=== PATIENT | male | born 1950 | race Caucasian/White ===

== ENCOUNTER 2017-06-12 05:52 | Day surgery (SDC) | payer MEDICARE, OTHER ==
[~2017-06-12] VITALS: Ht 171.4 cm; Wt 74.5 kg
[2017-06-12] VITALS (9 sets, daily range): BP systolic 134–154; BP diastolic 63–76; PULSE 80–88; RESP 16–20; Ht 171.4 cm; Wt 74.5 kg
[2017-06-12] MEDS ORDERED: BP MED (06:39)
--- NOTE | 2017-06-12 06:54 | RADRPT ---
PROCEDURE: XR Chest. CLINICAL INDICATION: AV graft creation. Pulmonary process not otherwise specified. TECHNIQUE: Portable single view of the chest COMPARISON: None. FINDINGS: The heart size appears within normal limits. There are increased interstitial markings of the lung b ases, left greater than right. Aortic calcification. There is a presumed femoral approach double-lum en catheter with tips in the right atrium and superior vena cava. Slightly increased markings at the medial left lung base could be due to an area of early infiltrate. No other area of infiltrate is s een. No pleural effusion or overt congestive heart failure. Mild degenerative change of the spine. IMPRESSION: Presumed femoral approach double-lumen catheter with tips in the right atrium and superior vena cava . Increased basilar interstitial markings. Early left base infiltrate cannot be excluded. RPTAT: [facility] Physician [place] Date Time Electronically viewed and signed by Jessy Puri Physician on 06/12/2017 06:54 KARSTEN/
[2017-06-12] MEDS ORDERED: LIDOCAINE 1% (MPF) 30 ML INJ ONE (07:24)
[2017-06-12] MEDS ORDERED: THROMBIN 5000 UNIT VIAL ONE (07:24)
[2017-06-12] MEDS ORDERED: GELATIN SIZE 100 SPONGE ONE (07:24)
[2017-06-12] MEDS ORDERED: HEPARIN 1000 UNITS/ML 10 ML INJ ONE (07:24)
[2017-06-12] MEDS ORDERED: CARVEDILOL (07:29)
[2017-06-12] MEDS ORDERED: GABAPENTIN (07:29)
[2017-06-12] MEDS ORDERED: TRAZADONE (07:29)
[2017-06-12] MEDS ORDERED: DEPRESSION MED (07:29)
[2017-06-12] MEDS ORDERED: OMEGA (07:29)
--- NOTE | 2017-06-12 07:29 | HPN ---
Date/Time of Note Date/Time of Note DATE: 06/12/17 TIME: 07:29 Interval H&P Admission Note Pt. seen H&P reviewed: No system changes ARLETTE NAPOLES MD Jun 12, 2017 07:29
--- NOTE | 2017-06-12 07:29 | HPN ---
Date/Time of Note Date/Time of Note DATE: 06/12/17 TIME: 07:29 Interval H&P Admission Note Pt. seen H&P reviewed: No system changes ARLETET NAPOLES MD Jun 12, 2017 07:29
[2017-06-12] MEDS ORDERED: LIDOCAINE 1% (MPF) 30 ML INJ INJ ONE (07:55)
[2017-06-12] MEDS ORDERED: HEPARIN 1000 UNITS/ML 10 ML INJ IRR ONE (07:55)
[2017-06-12] MEDS ORDERED: FENTAnyl 50 MCG/ML VIAL ONE (08:07)
[2017-06-12] MEDS ORDERED: MIDAZOLAM 1 MG/ML 2 ML INJ ONE (08:08)
[2017-06-12] MEDS ORDERED: CEFAZOLIN 1 GM INJ ONE (09:24)
[2017-06-12] MEDS ORDERED: ONDANSETRON 4 MG INJ ONE (09:24)
[2017-06-12] MEDS ORDERED: ETOMIDATE 20 MG INJ ONE (09:24)
[2017-06-12] MEDS ORDERED: LIDOCAINE 2% (SDV) 5 ML INJ ONE (09:24)
[2017-06-12] MEDS ORDERED: ROPIVACAINE 0.5 % 30 ML VIAL ONE (09:25)
--- NOTE | 2017-06-12 09:51 | SIPON ---
Date/Time of Note Date/Time of Note DATE: 06/12/17 TIME: 09:50 Operative Report Preoperative Diagnosis ESRD Postoperative Diagnosis same Operation/Procedure Performed L arm AVG creation - redo Surgeon see signature line special education educational assistant none Anesthesia: general Estimated blood loss: 10 - 50 ml's Transfusion Required none Specimen none Grafts/Implants 6 mm artegraft Complications none ARLETTE NAPOLES MD Jun 12, 2017 09:51
--- NOTE | 2017-06-12 09:51 | SIPON ---
Date/Time of Note Date/Time of Note DATE: 06/12/17 TIME: 09:50 Operative Report Preoperative Diagnosis ESRD Postoperative Diagnosis same Operation/Procedure Performed L arm AVG creation - redo Surgeon see signature line gift shop assistant none Anesthesia: general Estimated blood loss: 10 - 50 ml's Transfusion Required none Specimen none Grafts/Implants 6 mm artegraft Complications none ARLETTE NAPOLES MD Jun 12, 2017 09:51
--- NOTE | 2017-06-12 09:51 | SIPON ---
Date/Time of Note Date/Time of Note DATE: 06/12/17 TIME: 09:50 Operative Report Preoperative Diagnosis ESRD Postoperative Diagnosis same Operation/Procedure Performed L arm AVG creation - redo Surgeon see signature line tax assistant none Anesthesia: general Estimated blood loss: 10 - 50 ml's Transfusion Required none Specimen none Grafts/Implants 6 mm artegraft Complications none ARLETTE NAPOLES MD Jun 12, 2017 09:51
--- NOTE | 2017-06-12 11:08 | OPR ---
DATE OF OPERATION: 06/12/2017 PREOPERATIVE DIAGNOSIS: End-stage renal disease with multiple failed previous accesses. POSTOPERATIVE DIAGNOSIS: End-stage renal disease with multiple failed previous accesses. PROCEDURE PERFORMED: Creation of left upper arm AV graft. SURGEON: Arlette Harris MD ANESTHESIA: LMA with a Scalene block. ESTIMATED BLOOD LOSS: 50 mL. COMPLICATIONS: There were no intraprocedural complications. INDICATIONS: This is a 66-year-old gentleman. He has been on dialysis for many years. He has had failed accesses in both arms. I did a recent vein mapping. His left-sided central veins are patent and he has a decent axillary vein in the upper arm. 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 I brought him in today for a left arm AV graft. He is currently dialyzing via right femoral Perm-A-Cath. DESCRIPTION OF PROCEDURE: Patient was brought to the operating room and placed on the table in the supine position. The left arm was prepped and draped in the usual sterile fashion. I began by huma abdul ultrasound to identify the brachial artery just above the elbow. I marked it and then I identifie d the axillary vein in the upper arm and I marked that. Once he was prepped and draped in the usual sterile fashion. I began by exposing the brachial artery at the elbow. I made an incision longitu dinally over the brachial artery pulse. I dissected down through subcutaneous tissues using electro cautery. This is a redo so there is a lot of scar tissue, but I was able to dissect out the brachia l artery, it was a little bit small, but had good pulse and was decent caliber. I then went to the upper arm and made a longitudinal incision over the axillary vein and the upper portion of the media l upper arm. I dissected down through the subcutaneous tissue using electrocautery. I carefully id entified the axillary vein. It was a good caliber and very good size, soft and patent. I then tunn eled between the 2 incisions using an aortic clamp. I tunneled a 6 mm Artegraft collagen graft. I then did the venous anastomosis. I clamped the axillary vein proximally and distally, made about a 1.5 cm long venotomy and then spatulated the end of the graft to fit the venotomy and anastomosed th e distal end of the graft to the side of the vein using 6-0 Prolene suture in a running standard vas cular surgical fashion. I removed the clamps. There was good backflow and it flushed quite easily. I then clamped the graft and then directed my attention to the arterial anastomosis. I clamped th e brachial artery proximally and distally, made an 8 mm long anterior arteriotomy and I just cut the end of the graft flush and then anastomosed the proximal end of graft to the side of the artery usi ng 6-0 Prolene suture in a running standard vascular surgical fashion. Clamps were removed. There was a good thrill. There was good hemostasis. I closed the skin incisions in 2 layers using an inn er layer of 3-0 Vicryl an outer layer of 4-0 Monocryl subcuticular sutures. Sterile dressing was ap plied. Patient was transferred to recovery in stable condition. He tolerated the procedure well wi thout any complications. Dictated By: ARLETTE NAGY/SOBEIDA Conf#: [id number] DID#: [id number] CC: NATHAN ESOPSITO MD;*EndCC*
--- NOTE | 2017-06-12 13:49 | RADRPT ---
Vent Rate: 67 bpm RR Interval: 0 msec VA Interval: 166 msec QRS Duration: 108 msec QT Interval: 430 msec QTC Interval: 454 msec P-R-T [place]: 74 - 39 - 78 degrees Normal sinus rhythm Normal ECG Electronically Signed By: Jaxon York [id number]
--- NOTE | 2017-06-12 13:49 | RADRPT ---
Vent Rate: 67 bpm RR Interval: 0 msec OR Interval: 166 msec QRS Duration: 108 msec QT Interval: 430 msec QTC Interval: 454 msec P-R-T [place]: 74 - 39 - 78 degrees Normal sinus rhythm Normal ECG Electronically Signed By: Jaxon York [id number]
--- NOTE | 2017-06-12 13:49 | RADRPT ---
Vent Rate: 67 bpm RR Interval: 0 msec ND Interval: 166 msec QRS Duration: 108 msec QT Interval: 430 msec QTC Interval: 454 msec P-R-T [place]: 74 - 39 - 78 degrees Normal sinus rhythm Normal ECG Electronically Signed By: Jaxon York [id number]
== END 2017-06-12 11:40 | disposition home or self-care (01) ==
LOC: SDS 05:52
PROVIDERS: ATTEND Surgery Vascular Surgery
DX: I12.0 Hypertensive chronic kidney disease with stage 5 chronic kidney disease or end stage renal disease (principal); N18.6 End stage renal disease; E78.5 Hyperlipidemia, unspecified; J44.9 Chronic obstructive pulmonary disease, unspecified; I73.9 Peripheral vascular disease, unspecified
CPT/HCPCS: 36830; 71010; 80048; 85025; 85610; 85730; 93005; C1768; J0690; J1644; J2250; J2405; J2795; J3010